=== PATIENT | male | born 1995 | race Caucasian/White ===

== ENCOUNTER 2017-06-02 22:51 | Emergency (ER) | payer SELFPAY ==
[~2017-06-02] VITALS: Ht 182.9 cm; Wt 97.7 kg
[2017-06-02 23:02] VITALS: BP 121/65
== END 2017-06-03 00:45 | disposition left against medical advice (07) ==
LOC: EMS 22:56
DX: L60.0 Ingrowing nail (principal); Z53.21 Procedure and treatment not carried out due to patient leaving prior to being seen by health care provider